=== PATIENT | female | born 1970 | race Caucasian/White ===

== ENCOUNTER 2017-07-02 18:32 | Emergency (ER) | payer OTHER ==
[~2017-07-02] VITALS: Ht 167.6 cm; Wt 76.7 kg
[2017-07-02] MEDS ORDERED: ACYCLOVIR800 MG PO (19:08)
[2017-07-02] MEDS ORDERED: FLUOXETINE HCL10 MG PO (19:18)
[2017-07-02] MEDS ORDERED: AMITRIPTYLINE H25 MG PO (19:18)
== END 2017-07-02 19:12 | disposition home or self-care (01) ==
LOC: FSED 18:32
DX: B02.9 Zoster without complications (principal)
CPT/HCPCS: 99282